=== PATIENT | female | born 1965 | race Caucasian/White ===

== ENCOUNTER → 2021-04-07 11:48 | Outpatient (CLI) | payer OTHER, SELFPAY ==
[2021-04-07 12:32] LABS: Add Manual Diff / Slide Review NO; Basophils Absolute Auto 0 /uL (0-100); Basophils Percent Auto 0.7 % (0-2); Eosinophils Absolute Auto 100 /uL (0-450); Eosinophils Percent Auto 2.6 % (2-4); Hematocrit 33.4 % (36-46); Hemoglobin 11.3 g/dL (12.0-16.0); Lymphocytes Absolute Auto 1300 /uL (1100-4500); Lymphocytes Percent Auto 22.1 % (25-40); Mean Corpuscular HGB Conc 33.9 % (30-36); Mean Corpuscular Volume 91.4 fL (80-100); Monocytes Absolute Auto 700 /uL (0-900); Monocytes Percent Auto 12.2 % (3-14); Neutrophils Absolute Auto 3500 /uL (1500-7000); Neutrophils Percent Auto 62.4 % (50-75); Platelet Count 215 X10^3/uL (150-400); Red Blood Cell Count 3.65 X10^6/uL (4.0-5.2); White Blood Cell Count 5.7 X10^3/uL (4.5-11.0)
[2021-04-07 14:54] LABS: Alanine Aminotransferase 21 IU/L (<35); Albumin 3.2 g/dL (3.5-5.0); Albumin Globulin Ratio 1.2 (1.0-2.8); Alkaline Phosphatase 81 U/L (38-126); Aspartate Aminotransferase 31 IU/L (14-36); Bilirubin Total 0.4 mg/dL (0.2-1.3); Blood Urea Nitrogen 20 mg/dL (7-17); Calcium 9.8 mg/dL (8.4-10.2); Carbon Dioxide 22 mmol/L (22-32); Chloride 108 mmol/L (98-107); Estimated Glomerular Filt Rate 41.4 mL/min (>60); Globulin 2.7 g/dL (1.7-4.1); Glucose 89 mg/dL (70-100); HEMOLYSIS 21 (0-50); Potassium 4.2 mmol/L (3.4-5.1); Sodium 138 mmol/L (137-145); Total Protein 5.9 g/dL (6.3-8.2)
[2021-04-07 16:58] LABS: Free T4, Direct Thyroxine 5.82 ng/dL (0.78-2.19)
[2021-04-07 17:13] LABS: Thyroid Stimulating Hormone < 0.015 uIU/mL (0.47-4.68)
== END ==
PROVIDERS: PCP Physician Assistant; Referring Provider Specialist; Visit Provider Specialist
DX: R10.9 Unspecified abdominal pain (principal); R53.83 Other fatigue; R10.84 Generalized abdominal pain; R53.82 Chronic fatigue, unspecified
CPT/HCPCS: 36415; 80053; 84439; 84443; 85025; 99214

== ENCOUNTER → 2021-04-19 13:50 | Outpatient (CLI) | payer OTHER, SELFPAY ==
[2021-04-19 14:23] LABS: COVID19 -Nasal RAPID Negative (Negative)
== END ==
PROVIDERS: PCP Physician Assistant; Visit Provider Specialist
DX: Z20.822 Contact with and (suspected) exposure to COVID-19 (principal)
CPT/HCPCS: 87635; C9803

== ENCOUNTER 2021-04-21 13:31 | Day surgery (SDC) | payer OTHER, SELFPAY ==
[2021-04-21] VITALS (8 sets, daily range): BP systolic 116–130; BP diastolic 57–84; PULSE 56–76; RESP 11–24; TEMP 36.4–36.7; O2SAT 93–98; BMI 35.2
[2021-04-21] MEDS: LACTATED RINGERS 1,000 ML 200 ML IV (14:27)
--- NOTE | 2021-04-21 14:46 | PM.PREOP ---
Pre-operative Note COVID-19 COVID-19 status: Negative Result date/Date tested (Pos, Neg/Pending): 04/20/21 Interval Note History & Physical reviewed/Exam performed by Physician: Yes Changes to H&P: Yes H&P completed within 30 days and has changed as indicated here:: Patient has been seen by her virtualization architect and he apparently feels her symptoms are not cardiac related and that her heart is functioning as expected. Will have a magnet in the room. Patient was advised by me not to stop her blood thinners. This may put her at increased risk of bleeding but I felt the risk for other reasons was not worth stopping the medication since the risk is actually pretty low that she would have a series complication. ASA Class (for procedural sedation): III
--- NOTE | 2021-04-21 15:27 | PM.OP.ENDO ---
Operative Date/Time/Diagnoses Date of procedure: 04/21/21 Time of procedure: 15:27 Pre-op diagnosis: Abdominal pain. This is her 1st colonoscopy. She is 55. Post-op diagnosis: same (Rare diverticulosis. Hemorrhoids without ulceration. Otherwise normal exam.) Procedure & Clinicians Study performed: Colonoscopy Same procedure as scheduled: Yes Indications: Evaluate abdominal pain. Screen for colon cancer. Surgeon: Patric Gallo Procedure Notes SCOAP/Timeout: Performed Procedure in detail: The patient was placed in the left lateral decubitus position and underwent IV sedation directed by the surgeon consisting of fentanyl and Versed. Digital exam was unremarkable. The scope was inserted and advanced through the rectum into the sigmoid, descending, transverse, and ascending colon. Patient had to be repositioned and a stiffener inserted and pressure applied. Random occasional diverticuli were noted.. The cecum was reached identified by the ileocecal valve and the appendiceal opening. The scope was gradually brought out. No Polyps were found. The scope ultimately was retroflexed in the rectum. The appearance was remarkable for hemorrhoidal disease. There were no ulcers. The scope was brought slowly through her annual verge and additional hemorrhoidal disease noted.. The scope was removed and the patient tolerated the procedure well. Prep was very good. Scope withdrawal time: 6 minutes Sedation minutes: 29 Findings: diverticulosis (Rare) and internal hemorrhoids Specimen(s): none sent Complications: none Post-procedure Recommendations: Colonscopy in 10 years Follow up: as needed Disposition: PACU
[2021-04-21] MEDS: fentaNYL 250 MCG/5 ML INJ IV (15:28)
[2021-04-21] MEDS: MIDAZOLAM 5 MG/5 ML VIAL IV (15:28)
--- NOTE | 2021-04-21 16:17 | SUR.PHASEII ---
Pt ready to go, nay soft liquids tolerated, ceciliae called pt left in stable condition
== END 2021-04-21 16:18 | disposition home or self-care (01) ==
PROVIDERS: PCP Physician Assistant; Referring Provider Specialist; Visit Provider Specialist
PROC: 0DJD8ZZ Inspection of Lower Intestinal Tract, Via Natural or Artificial Opening Endoscopic (ICD-10-PCS; CPT 45378; principal; 2021-04-21 14:30)
DX: R10.9 Unspecified abdominal pain (principal); K57.30 Diverticulosis of large intestine without perforation or abscess without bleeding; K64.8 Other hemorrhoids; Z95.0 Presence of cardiac pacemaker; Z86.74 Personal history of sudden cardiac arrest
CPT/HCPCS: 45378; 99152; 99153; J2250; J3010

== ENCOUNTER 2021-04-27 11:38 | Emergency (ER) | payer OTHER, SELFPAY ==
[2021-04-27 12:10] VITALS: BP 160/77; PULSE 76; RESP 17; TEMP 36.8; O2SAT 98
[2021-04-27 13:33] LABS: Add Manual Diff / Slide Review NO; Basophils Absolute Auto 0 /uL (0-100); Basophils Percent Auto 0.7 % (0-2); Eosinophils Absolute Auto 200 /uL (0-450); Eosinophils Percent Auto 4.2 % (2-4); Hemoglobin 10.9 g/dL (12.0-16.0); Lymphocytes Absolute Auto 1300 /uL (1100-4500); Lymphocytes Percent Auto 26.2 % (25-40); Monocytes Absolute Auto 600 /uL (0-900); Monocytes Percent Auto 11.6 % (3-14); Neutrophils Absolute Auto 2700 /uL (1500-7000); Neutrophils Percent Auto 57.3 % (50-75); Platelet Count 184 X10^3/uL (150-400); Red Blood Cell Count 3.62 X10^6/uL (4.0-5.2); Red Cell Distribution Width 12.8 % (11.6-14.8); White Blood Cell Count 4.8 X10^3/uL (4.5-11.0)
[2021-04-27 13:41] LABS: Troponin I < 0.012 ng/mL (0.01-0.034)
[2021-04-27 13:55] LABS: Alanine Aminotransferase 23 IU/L (<35); Albumin 3.4 g/dL (3.5-5.0); Albumin Globulin Ratio 1.2 (1.0-2.8); Alkaline Phosphatase 88 U/L (38-126); Aspartate Aminotransferase 40 IU/L (14-36); BUN Creatinine Ratio 10.2 (6-22); Bilirubin Total 0.4 mg/dL (0.2-1.3); Blood Urea Nitrogen 13 mg/dL (7-17); Carbon Dioxide 22 mmol/L (22-32); Chloride 108 mmol/L (98-107); Estimated Glomerular Filt Rate 43.5 mL/min (>60); Globulin 2.9 g/dL (1.7-4.1); Glucose 95 mg/dL (70-100); HEMOLYSIS < 15 (0-50); Potassium 3.8 mmol/L (3.4-5.1); Sodium 137 mmol/L (137-145); Total Protein 6.3 g/dL (6.3-8.2)
[2021-04-27 14:04] LABS: Free T4, Direct Thyroxine 5.92 ng/dL (0.78-2.19)
[2021-04-27 14:19] LABS: Thyroid Stimulating Hormone < 0.015 uIU/mL (0.47-4.68)
[2021-04-27 15:12] VITALS: BP 130/62; PULSE 60; RESP 18; O2SAT 100
[2021-04-27 15:30] LABS: Appearance Urine UA CLEAR; Bilirubin Urine UA NEGATIVE (NEGATIVE); Color Urine UA YELLOW; Glucose Urine UA NEGATIVE (Negative); Ketones Urine UA NEGATIVE (NEGATIVE); Leukocyte Esterase Urine UA NEGATIVE (NEGATIVE); Nitrite Urine UA NEGATIVE (Negative); Occult Blood Urine UA TRACE-INTACT (Negative); Protein Urine UA NEGATIVE (Negative); Specific Gravity Urine UA <=1.005 (1.000-1.035); Urobilinogen Urine UA 0.2 E.U./dL (0.2)
[2021-04-27 15:34] LABS: pH Urine UA 6.5 (4.5-8.0)
--- NOTE | 2021-04-27 15:47 | ED.RECABL ---
HPI - Recheck/Abnormal Lab/Rx General Chief Complaint: Recheck/Abnormal Lab/Rx Stated Complaint: thyroid issues Time Seen by Provider: 04/27/21 15:36 Source: patient Mode of arrival: Ambulatory History of Present Illness HPI narrative: Patient is a 56-year-old female presents with abnormal thyroid studies. She states she was sent here for evaluation. She has had 6 weeks of ongoing symptoms generalized weakness for falling out ongoing abdominal pain. She has had workup for abdominal pain including ultrasound and colonoscopy. She says the person who actually did the colonoscopy found that she had thyroid issues and this was beginning of the month. Primary has been trying to get her into an keycase assembler but she can not be seen by endocrinology for at least 2 more months. She generally feels terrible and feels like no one is helping her. She does have atrial fibrillation she has cut that pacemaker she is on Eliquis and metoprolol. She denies chest pain palpitations. She does feel little dizzy and lightheaded at times. She has not passed out. No nausea or vomiting. Related Data Home Medications Medication Instructions Recorded Confirmed metoprolol succinate 50 mg 75 mg PO BID #0 03/06/13 04/21/21 tablet,extended release 24 hr (Toprol XL) Acetaminophen/Aspirin/Caffei 1 tab PO BS PRN #0 03/07/13 04/07/21 (EXCEDRIN EXTRA STRENGTH 250 MG-250 MG-65 MG~) diltiazem HCl 60 mg tablet 60 mg PO QDAY #0 05/04/17 04/21/21 (Cardizem) topiramate 100 mg tablet (Topamax) 100 mg PO QDAY #0 05/04/17 04/21/21 apixaban 5 mg tablet 5 mg PO BID 04/07/21 04/21/21 aspirin 81 mg tablet,delayed 81 mg PO DAILY 04/07/21 04/21/21 release (Adult Aspirin Regimen) buspirone 15 mg tablet 15 mg PO BID 04/07/21 04/21/21 fluoxetine 20 mg capsule (Prozac) 20 mg PO DAILY 04/07/21 04/21/21 loratadine 10 mg tablet (Claritin) 10 mg PO DAILY 04/07/21 04/21/21 oxycodone 5 mg capsule 5 mg PO BID PRN 06/10/21 06/10/21 Previous Rx's Medication Instructions Recorded methimazole 5 mg tablet 5 mg PO DAILY #30 tab 04/27/21 Allergies Allergy/AdvReac Type Severity Reaction Status Date / Time promethazine AdvReac Severe Irritable Verified 04/27/21 12:09 Penicillins [PENICILLINS] AdvReac Intermediate ITCHING Verified 04/27/21 12:09 morphine [MORPHINE] AdvReac Mild dry mouth Verified 04/27/21 12:09 Review of Systems Review of Systems ROS Unobtainable: All systems reviewed & are unremarkable except as noted in HPI and below Constitutional Constitutional: Reports fatigue, Denies headache(s), Reports malaise and Reports weight loss Eyes Eyes: Denies blurry vision and Denies exophthalmos ENT Ears, Nose, Mouth, and Throat: Denies headache(s) Cardiovascular Cardiovascular: Reports irregular heart rhythm Respiratory Respiratory: Denies chest congestion and Denies wheezing Gastrointestinal Gastrointestinal: Reports as per HPI and Reports abdominal pain Genitourinary Genitourinary: Denies urinary hesitancy and Denies urinary urgency Neurologic Neurologic: Denies headache(s) Endocrine Endocrine: Reports fatigue Allergic/Immunologic Allergic/Immunologic: Denies wheezing Patient History Medical History (Updated 04/27/21 @ 15:55 by Sarah Yuan DO) Hx of cardiac pacemaker Surgical History (Updated 04/07/21 @ 11:51 by Sandi Ramirez RN) Hx of hysterectomy Hx of kidney removal Social History (Updated 04/07/21 @ 11:52 by Sandi Ramirez RN) marital status: household members: spouse Smoking Status: Never smoker alcohol intake: current substance use type: does not use Smoking Status: Never smoker alcohol intake frequency: holidays/special occasions only Substance Use Type: does not use, opiates and prescription drug Exam Initial Vital Signs Initial Vital Signs: Vital Signs Temperature 98.2 F 04/27/21 12:10 Pulse Rate 76 04/27/21 12:10 Respiratory Rate 17 04/27/21 12:10 Blood Pressure 160/77 H 04/27/21 12:10 Pulse Oximetry 98 04/27/21 12:10 GENERAL: Alert pleasant 56-year-old female and in no acute distress. HEENT: Head atraumatic,EOMI, pupils reactive, face symmetric, moist mucous membranes CARDIOVASCULAR: Regular rate and rhythm without murmurs, rubs or gallops. RESPIRATORY: Breath sounds equal bilaterally, no wheezes rales or rhonchi. ABDOMEN: Soft, mild epigastric pain no guarding or rebound negative right upper quadrant pain EXTREMITIES: Normal range of motion, no clubbing or edema. Neurovascularly intact NEUROLOGICAL: Alert and oriented x4.Normal gait and speech. SKIN: Warm, dry, no laceration, no petechiae, no rashes or lesions. Course Orders Ordered: ED Orders 04/27/21 12:41 EKG-12 Lead Stat 04/27/21 13:07 CMP [Comprehensive Metabolic Panel] Stat Complete Blood Count AUTO DIFF Stat Free T3, Triiodothyronine Free Stat Free T4, Direct Thyroxine Stat Thyroid Stimulating Hormone Stat Troponin I Stat 04/27/21 15:19 Urinalysis Screen (Dip Only) Stat Vital Signs Vital signs: Vital Signs - 8 hr 04/27/21 12:10 04/27/21 15:12 Temperature 98.2 F Pulse Rate 76 60 Respiratory Rate 17 18 Blood Pressure 160/77 H 130/62 Pulse Oximetry 98 100 MDM - Recheck/Abnormal Lab/Rx Lab Data Attestation: I reviewed the patient's lab results. Result diagrams: 04/27/21 13:07 04/27/21 13:07 Labs: Lab Results 04/27/21 04/27/21 04/27/21 Range/Units 13:07 13:07 13:07 WBC 4.8 (4.5-11.0) X10^3/uL RBC 3.62 L (4.0-5.2) X10^6/uL Hgb 10.9 L (12.0-16.0) g/dL Hct 33.0 L (36-46) % MCV 91.0 (80-100) fL MCH 30.0 (26-34) PG MCHC 33.0 (30-36) % RDW 12.8 (11.6-14.8) % Plt Count 184 (150-400) X10^3/uL Neut % (Auto) 57.3 (50-75) % Lymph % (Auto) 26.2 (25-40) % O'Brien % (Auto) 11.6 (3-14) % Eos % (Auto) 4.2 H (2-4) % Baso % (Auto) 0.7 (0-2) % Neut # (Auto) 2700 (6815-7443) /uL Lymph # (Auto) 1300 (5076-2476) /uL O'Brien # (Auto) 600 (0-900) /uL Eos # (Auto) 200 (0-450) /uL Baso # (Auto) 0 (0-100) /uL Sodium (137-145) mmol/L Potassium (3.4-5.1) mmol/L Chloride (98-107) mmol/L Carbon Dioxide (22-32) mmol/L BUN (7-17) mg/dL Creatinine (0.52-1.04) mg/dL Estimated GFR (>60) mL/min BUN/Creatinine Ratio (6-22) Glucose (70-100) mg/dL Calcium (8.4-10.2) mg/dL Total Bilirubin (0.2-1.3) mg/dL AST (14-36) IU/L ALT (<35) IU/L Alkaline Phosphatase (38-126) U/L Troponin I < 0.012 (0.01-0.034) ng/mL Total Protein (6.3-8.2) g/dL Albumin (3.5-5.0) g/dL Globulin (1.7-4.1) g/dL Albumin/Globulin Ratio (1.0-2.8) TSH < 0.015 L (0.47-4.68) uIU/mL Free T4 5.92 H (0.78-2.19) ng/dL Free T3 14.20 H (2.77-5.27) pg/mL Urine Color Urine Appearance Urine pH (4.5-8.0) Ur Specific [place] (1.000-1.035) Urine Protein (Negative) Urine Glucose (UA) (Negative) g/dL Urine Ketones (NEGATIVE) Urine Occult Blood (Negative) Urine Nitrate (Negative) Urine Bilirubin (NEGATIVE) Urine Urobilinogen (0.2) E.U./dL Ur Leukocyte Esterase (NEGATIVE) 04/27/21 04/27/21 Range/Units 13:07 15:19 WBC (4.5-11.0) X10^3/uL RBC (4.0-5.2) X10^6/uL Hgb (12.0-16.0) g/dL Hct (36-46) % MCV (80-100) fL MCH (26-34) PG MCHC (30-36) % RDW (11.6-14.8) % Plt Count (150-400) X10^3/uL Neut % (Auto) (50-75) % Lymph % (Auto) (25-40) % O'Brien % (Auto) (3-14) % Eos % (Auto) (2-4) % Baso % (Auto) (0-2) % Neut # (Auto) (8449-5134) /uL Lymph # (Auto) (7027-2538) /uL O'Brien # (Auto) (0-900) /uL Eos # (Auto) (0-450) /uL Baso # (Auto) (0-100) /uL Sodium 137 (137-145) mmol/L Potassium 3.8 (3.4-5.1) mmol/L Chloride 108 H (98-107) mmol/L Carbon Dioxide 22 (22-32) mmol/L BUN 13 (7-17) mg/dL Creatinine 1.27 H (0.52-1.04) mg/dL Estimated GFR 43.5 L (>60) mL/min BUN/Creatinine Ratio 10.2 (6-22) Glucose 95 (70-100) mg/dL Calcium 10.0 (8.4-10.2) mg/dL Total Bilirubin 0.4 (0.2-1.3) mg/dL AST 40 H (14-36) IU/L ALT 23 (<35) IU/L Alkaline Phosphatase 88 (38-126) U/L Troponin I (0.01-0.034) ng/mL Total Protein 6.3 (6.3-8.2) g/dL Albumin 3.4 L (3.5-5.0) g/dL Globulin 2.9 (1.7-4.1) g/dL Albumin/Globulin Ratio 1.2 (1.0-2.8) TSH (0.47-4.68) uIU/mL Free T4 (0.78-2.19) ng/dL Free T3 (2.77-5.27) pg/mL Urine Color Yellow Urine Appearance Clear Urine pH 6.5 (4.5-8.0) Ur Specific [place] <=1.005 (1.000-1.035) Urine Protein Negative (Negative) Urine Glucose (UA) Negative (Negative) g/dL Urine Ketones Negative (NEGATIVE) Urine Occult Blood Trace-intact (Negative) Urine Nitrate Negative (Negative) Urine Bilirubin Negative (NEGATIVE) Urine Urobilinogen 0.2 (0.2) E.U./dL Ur Leukocyte Esterase Negative (NEGATIVE) Urine Dip Bedside Urine Glucose Negative Bedside Urine Bilirubin - Negative Bedside Urine Ketone - Negative Urine Specific [place] 1.010 Bedside Urine Occult Blood +/- Bedside Urine pH 6.0 Bedside Urine Protein - Negative Bedside Urine Urobilinogen - Negative Bedside Urine Nitrite - Negative Bedside Urine Leukocytes - Negative Esterase ECG Data Attestation: I personally reviewed and interpreted this ECG as follows: Interpretation: Normal sinus rhythm rate 61 168 QRS [address] changes or T-wave inversions MDM Narrative Medical decision making narrative: Patient is having ongoing symptoms for last 6 weeks is consistent with hyperthyroid. Left also confirm a hyperthyroid. She currently does not have any evidence of thyroid storm. I will start her on a small dose and I told her it is imperative that she follow up with primary care and she needs to have further studies done. Discharge Plan Departure Patient Disposition: Home Clinical Impression: Hyperthyroidism Instructions: Hyperthyroidism Activity Restrictions/Additional Instructions: *You have been diagnosed with hyperthyroid *What to do: You do need to see an keycase assembler any certainly need further studies. However I will start you on medication for hyperthyroid. It is a very small dose and can be titrated up and will take about 4-6 weeks to notice any effect *Continue to take medications as directed Methimazole 5 mg once a day--> SENT TO [facility] *Follow up with your primary care provider in 2-3 days *Return to ER if you should have palpitations dizziness lightheadedness passing out or any new, worsening or concerning symptoms Prescriptions: New methimazole 5 mg tablet 5 mg PO DAILY Qty: 30 RF: 0 No Action metoprolol succinate [Toprol XL] 50 MG tablet extended release 24 hr 75 mg PO BID Qty: 0 RF: 0 Acetaminophen/Aspirin/Caffei (EXCEDRIN EXTRA STRENGTH 250 MG-250 MG-65 MG~) 1 tab PO BS PRN (Reason: Migraine Headache) Qty: 0 RF: 0 topiramate [Topamax] 100 MG tablet 100 mg PO QDAY Qty: 0 RF: 0 diltiazem HCl [Cardizem] 60 MG tablet 60 mg PO QDAY Qty: 0 RF: 0 apixaban 5 mg tablet 5 mg PO BID RF: 0 aspirin [Adult Aspirin Regimen] 81 mg tablet,delayed release (DR/EC) 81 mg PO DAILY RF: 0 buspirone 15 mg tablet 15 mg PO BID RF: 0 loratadine [Claritin] 10 mg tablet 10 mg PO DAILY RF: 0 oxycodone 5 mg capsule 5 mg PO BID PRN (Reason: Pain, Moderate) RF: 0 fluoxetine [Prozac] 20 mg capsule 20 mg PO DAILY RF: 0 Referrals: Gavin Berkowitz PA-C [Primary Care Provider] -
== END 2021-04-27 16:12 | disposition home or self-care (01) ==
PROVIDERS: Emergency Medicine; Emergency Provider Emergency Medicine; PCP Physician Assistant
DX: E05.90 Thyrotoxicosis, unspecified without thyrotoxic crisis or storm (principal); I48.91 Unspecified atrial fibrillation; Z79.01 Long term (current) use of anticoagulants
CPT/HCPCS: 36415; 80053; 81003; 84439; 84443; 84481; 84484; 85025; 93005; 99283

== ENCOUNTER → 2021-05-10 14:47 | Outpatient (CLI) | payer OTHER, SELFPAY ==
--- NOTE | 2021-05-10 14:49 | DI.ECHO.S_ITS ---
[facility] +---------+ : : [address] : : : : [id number] : : : : Phone: [phone]+ Echocardiogram Report + + :Name: DURGA BARCENAS Study Date: 05/10/2021 Height: 67 in : :[facility] ReadingLocation: Weight: 220 lb : : Gender: Female BSA: 2.1 m2 : :: 1965 Age: 56 yrs BP: 160/110 mmHg: :Reason For Study: VENTRICULAR TACHYCARDIA : :Ordering Physician: KENDRA, : :MALATHI Performed By: Sugar Phillips : :Referring: MALATHI GARDNER : + + Interpretation Summary 1) Normal left ventricular size with moderately reduced systolic function (EF 35-40%). 2) The right ventricle grossly appears normal in size with probable normal systolic function. There is a pacemaker lead in the right ventricle. 3) Severe left atrial enlargement present. 4) Moderate mitral regurgitation. 5) There is moderate tricuspid regurgitation. 6) The right ventricular systolic pressure is estimated to be at least 41 mmHg based on an estimated right atrial pressure of 8 mm Hg. 7) Sinus rhythm with brief runs of atrial tachycardia present. 8) Hypertension present during the study (BP 160/110mmHg). 9) Compared to the Echo done 05/30/2019, LVEF has improved significantly form severely reduced to moderately reduced on this study. Procedure: A two-dimensional transthoracic echocardiogram with color flow and Doppler was performed. The study quality was technically adequate. Comparison is made with the echocardiogram of 05/30/2019, 10/12/2017. The heart rate ranged between 63-145 bpm during the study. Left Ventricle: The estimated left ventricular end diastolic volume is 127 ml. There is mild concentric left ventricular hypertrophy. The left ventricle is normal in size. The ejection fraction is estimated to be 35-40%. Left ventricular systolic function is moderately reduced. Right Ventricle: There is a pacemaker lead in the right ventricle. The right ventricle grossly appears normal in size with probable normal systolic function. Atria: The left atrium is severely dilated. The right atrium is mildly dilated. There is no Doppler evidence for an interatrial shunt. Mitral Valve: The mitral valve is normal in structure and function. There is moderate mitral regurgitation. Aortic Valve: The aortic valve is trileaflet. The aortic valve opens well. There is no aortic valve stenosis. No aortic regurgitation is present. Tricuspid Valve: The tricuspid valve leaflets are thin and pliable. The right ventricular systolic pressure is estimated to be at least 41 mmHg based on an estimated right atrial pressure of 8 mm Hg. There is moderate tricuspid regurgitation. Pulmonic Valve: The pulmonic valve leaflets are thin and pliable; valve motion is normal. There is mild pulmonic regurgitation. Great Vessels: The aortic root is normal size. The dimensions of the ascending aorta are normal. The IVC is of normal diameter and collapses less than 50% with a sniff. This suggests a right atrial pressure of 8 mm Hg. Pericardium/ Pleura There is no pericardial effusion. There is no pleural effusion. MMode/2D Measurements & Calculations LVIDd: 4.8 cm LVOT diam: 1.9 cm LVIDs: 4.3 cm Ao root diam: 3.0 cm FS: 10.5 % asc Aorta Diam: 3.0 cm IVSd: 1.0 cm Ao Arch Diam (Prox Trans): 2.9 cm LVPWd: 1.1 cm LV lubin. diameter/BSA (cm/m^2): 2.3 LV sys. diameter/BSA (cm/m^2): 2.0 LA A2 area: 33.0 cm2 RA long axis: 6.2 cm LA A4 area: 30.5 cm2 RA area: 23.9 cm2 LA length (vol): 6.9 cm RA vol: 78.0 ml LA vol: 123.0 ml RA : 37.0 ml/m2 LA vol index: 58.4 ml/m2 IVC diam: 1.8 cm RVD1 (basal): 4.3 cm TAPSE: 2.7 cm Doppler Measurements & Calculations Ao V2 max: 142.7 cm/sec LVOT Max Noel: 64.6 cm/sec Ao V2 mean: 94.9 cm/sec LV V1 max P.7 mmHg Ao max P.2 mmHg LV V1 VTI: 13.3 cm Ao mean P.1 mmHg ZAYDA(I,D): 1.4 cm2 Ao V2 VTI: 27.8 cm ZAYDA(V,D): 1.3 cm2 sev ratio: 0.48 ZAYDA indexed to BSA (cm^2/m^2): 0.65 Med Peak E' Noel: 6.8 cm/sec TR max noel: 288.2 cm/sec Lat Peak E' Noel: 6.9 cm/sec TR max P.2 mmHg PA V2 max: 89.1 cm/sec PA V2 mean: 57.1 cm/sec PA mean P.5 mmHg PA pr(Accel): 41.7 mmHg SV(LVOT): 37.9 ml Reading Physician:05:42 PM
== END ==
PROVIDERS: PCP Internal Medicine; Referring Provider Internal Medicine Cardiovascular Disease; Visit Provider Internal Medicine Cardiovascular Disease
DX: I08.1 Rheumatic disorders of both mitral and tricuspid valves (principal); I47.2 Ventricular tachycardia; Z95.0 Presence of cardiac pacemaker
CPT/HCPCS: 93306

== ENCOUNTER 2025-04-09 14:10 | Emergency (ER) | payer OTHER, MEDICARE, SELFPAY ==
[2025-04-09] VITALS (36 sets, daily range): BP systolic 105–156; BP diastolic 64–97; PULSE 60–141; RESP 10–36; TEMP 36.9; O2SAT 92–100; BMI 37.5
--- NOTE | 2025-04-09 14:18 | EKG_ITS ---
[facility] [place] [id number] [address] Test Date: 2025-04-09 Pat Name: Kymberly Joseph Department: Room: Gender: Female Systems Specialist: ARELI : 1965 Requested By: Order Number: [id number] Reading MD: Joe Way MD Measurements Intervals Elizabeth Rate: 104 P: LA: QRS: 37 QRSD: 88 T: 39 QT: 360 QTc: 473 Interpretive Statements Atrial fibrillation with rapid ventricular response Low voltage QRS Septal infarct , age undetermined Electronically Signed On 04-13-2025 15:03:[address] MD
--- NOTE | 2025-04-09 14:18 | DI.RAD.S_ITS ---
PROCEDURE: XR CHEST 1V INDICATIONS: Chest Pain TECHNIQUE: One view of the chest was acquired. COMPARISON: None. FINDINGS: Surgical changes and devices: Left chest wall pacemaker leads are in the region of right atrium and right ventricle. Lungs and pleura: Lungs are clear. No pleural effusions or pneumothorax. Mediastinum: Mediastinal contours appear normal. Heart size is enlarged. Bones and chest wall: No suspicious bony lesions. Overlying soft tissues appear unremarkable. IMPRESSION: No acute cardiopulmonary pathology. Dictated by: Braeedn Walls M.D. on 04/09/2025 at 15:29 Approved by: Braeden Walls M.D. on 04/09/2025 at 15:29
[2025-04-09 15:02] LABS: Add Manual Diff / Slide Review NO; Basophils Absolute Auto 100 /uL (0-100); Basophils Percent Auto 0.9 % (0-2); Eosinophils Absolute Auto 200 /uL (0-450); Eosinophils Percent Auto 2.5 % (2-4); Hematocrit 42.1 % (36-46); Hemoglobin 14.1 g/dL (12.0-16.0); Lymphocytes Absolute Auto 1600 /uL (1100-4500); Lymphocytes Percent Auto 24.9 % (25-40); Mean Corpuscular HGB Conc 33.5 % (30-36); Mean Corpuscular Hemoglobin 31.8 PG (26-34); Monocytes Absolute Auto 500 /uL (0-900); Monocytes Percent Auto 7.5 % (3-14); Neutrophils Absolute Auto 4200 /uL (1500-7000); Neutrophils Percent Auto 64.2 % (50-75); Platelet Count 217 X10^3/uL (150-400); Red Blood Cell Count 4.43 X10^6/uL (4.0-5.2); Red Cell Distribution Width 13.5 % (11.6-14.8); White Blood Cell Count 6.6 X10^3/uL (4.5-11.0)
[2025-04-09 15:07] LABS: INR 1.7 (0.9-1.3); Prothrombin Time 18.9 SECONDS (9.4-12.5)
[2025-04-09 15:10] LABS: PTT Partial Thromboplastin Tim 38 SECONDS (25.1-36.5)
[2025-04-09 15:17] LABS: Alanine Aminotransferase 20 IU/L (<35); Albumin 4.2 g/dL (3.5-5.0); Albumin Globulin Ratio 1.4 (1.0-2.8); Alkaline Phosphatase 87 U/L (38-126); Aspartate Aminotransferase 27 IU/L (14-36); BUN Creatinine Ratio 13.1 (6-22); Bilirubin Total 0.7 mg/dL (0.2-1.3); Blood Urea Nitrogen 22 mg/dL (7-17); Calcium 9.6 mg/dL (8.4-10.2); Carbon Dioxide 21 mmol/L (22-32); Chloride 110 mmol/L (98-107); Creatine Kinase 35 U/L (30-135); Estimated Glomerular Filt Rate 35 mL/min (>60); Glucose 94 mg/dL (70-99); HEMOLYSIS 18 (0-50); Lipase 102 U/L (23-300); Potassium 4.5 mmol/L (3.4-5.1); Sodium 141 mmol/L (137-145); Total Protein 7.2 g/dL (6.3-8.2)
[2025-04-09 15:29] LABS: NT-proBNP (BNP-Adult 18+) 2810 pg/mL (<125); Troponin I < 0.012 ng/mL (0.01-0.034)
[2025-04-09 18:07] LABS: Troponin I < 0.012 ng/mL (0.01-0.034)
--- NOTE | 2025-04-09 19:58 | ED.ARRPALP ---
HPI - Arrhythmia/Palpitations General Chief Complaint: Arrhythmia/Palpitations Stated Complaint: sent by walk in SOB, in afib Time Seen by Provider: 04/09/25 18:29 Source: patient Mode of arrival: Ambulatory History of Present Illness HPI narrative: 59-year-old woman with a history of paroxysmal atrial fibrillation, on apixaban, hypertension, seasonal allergies, depression who presents complaining of a week of exertional dyspnea dizziness feeling lightheaded which has been getting progressively worse. Recently had metoprolol increased. She does have a pacemaker. 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 Related Data Home Medications ?Medication ?Instructions ?Recorded ?Confirmed metoprolol succinate 50 mg 75 mg PO BID ##0 03/06/13 04/21/21 tablet,extended release 24 hr (Toprol XL) Acetaminophen/Aspirin/Caffei 1 tab PO BS PRN Migraine Headache 03/07/13 04/07/21 (EXCEDRIN EXTRA STRENGTH 250 ##0 MG-250 MG-65 MG~) diltiazem HCl 60 mg tablet 60 mg PO QDAY ##0 05/04/17 04/21/21 (Cardizem) topiramate 100 mg tablet (Topamax) 100 mg PO QDAY ##0 05/04/17 04/21/21 apixaban 5 mg tablet 5 mg PO BID 04/07/21 04/21/21 aspirin 81 mg tablet,delayed 81 mg PO DAILY 04/07/21 04/21/21 release (Adult Aspirin Regimen) buspirone 15 mg tablet 15 mg PO BID 04/07/21 04/21/21 fluoxetine 20 mg capsule (Prozac) 20 mg PO DAILY 04/07/21 04/21/21 loratadine 10 mg tablet (Claritin) 10 mg PO DAILY 04/07/21 04/21/21 oxycodone 5 mg capsule 5 mg PO BID PRN Pain, Moderate 04/07/21 04/07/21 Previous Rx's ?Medication ?Instructions ?Recorded methimazole 5 mg tablet 5 mg PO DAILY #30 tabs 04/27/21 amiodarone 200 mg tablet 200 mg PO TAPER #90 tabs 04/09/25 Allergies Allergy/AdvReac Type Severity Reaction Status Date / Time promethazine AdvReac Severe Irritable Verified 04/27/21 12:09 Penicillins (PENICILLINS) AdvReac Intermediate ITCHING Verified 04/27/21 12:09 morphine (MORPHINE) AdvReac Mild dry mouth Verified 04/27/21 12:09 Review of Systems Review of Systems Narrative: Pertinent positive and negative findings as per HPI Patient History Medical History Hx of cardiac pacemaker Surgical History Hx of kidney removal Hx of hysterectomy Social History marital status: household members: spouse Smoking Status: Never smoker alcohol intake: current substance use type: does not use Smoking Status: Never smoker alcohol intake frequency: holidays/special occasions only Exam Initial Vital Signs Initial Vital Signs: Vital Signs Temperature 98.4 F 04/09/25 14:13 Pulse Rate 124 H 04/09/25 14:13 Respiratory Rate 18 04/09/25 14:13 Blood Pressure 121/72 04/09/25 14:13 Pulse Oximetry 99 04/09/25 14:13 Oxygen Delivery Method Room Air 04/09/25 14:13 General: Anxious appearing, in no acute distress. Able to give a complete and coherent history. Well-nourished well-developed HEENT: Moist mucous membranes, normal sclera with reactive pupils, Respiratory: Lungs are clear to auscultation, no wheezing no rales no rhonchi. Full and symmetrical air movement Cardiac: Irregular, no murmurs Abdomen: Soft, nontender, no rebound or guarding, no flank pain Skin: Warm and dry, no rashes Neurologic: Grossly neurologically intact with no obvious asymmetries or abnormalities Extremities: No trauma, well perfused Psych: Cooperative, appropriate insight and affect Procedures Cardioversion Time of Cardioversion: 20:40 Consent Signed: Yes Indication: Symptomatic AFib Stability: Stable Number of attempts (shocks): 2 Joules used: 200 Cardiac rhythm post-cardioversion: Atrial paced Sinus rhythm Additional Comments: 150 IV amiodarone given prior to procedure Procedural Sedation Time of procedure: 20:25 Consent signed: Yes Time out performed: Yes Indication: cardioversion ASA Class: III Mallampati Airway Classification: Class III Preparation: youth nutritional monitor applied, pulse oximeter, capnometry used, supplemental O2 applied, suction/airway equipment at bedside and IV secured IV Propofol dose (mg): 80 Intraservice time/total sedation time (min): 12 ED Sedation Level: Moderate (Concious) Patient Tolerated Procedure: Well Additional Comments: Patient was initially given 40 mg of propofol, initial shock was not successful cardioversion. She was given an another 20 mg as she began to wake, was still too awake and a 2nd 20 mg was given prior to the 2nd shock which was successful. Total dose was 80 mg Course Orders Ordered: ED Orders 04/09/25 14:18 XR chest 1V Stat EKG-12 Lead Stat 04/09/25 14:48 Complete Blood Count AUTO DIFF Stat Comprehensive Metabolic Panel Stat Lipase Stat Magnesium Stat NT-proBNP (BNP-Adult 18+) Stat PTT Partial Thromboplastin Josemanuel Stat Prothrombin Time INR Stat Troponin & CK Cardiac Panel Stat 04/09/25 17:35 Trop I [Troponin I] Stat Discontinued Medications Aspirin (Aspirin 81 Mg Chew Tab) 324 mg PO NOW ONE Stop: 04/09/25 14:19 Last Admin: 04/09/25 16:07 Dose: Not Given Documented By: RB Amiodarone HCl/Dextrose (Nexterone) 150 mg in 100 mls @ 600 mls/hr IV NOW ONE Stop: 04/09/25 20:53 Last Infusion: 04/09/25 21:16 Dose: Infused Documented By: Admin: 04/09/25 20:45 Dose: 600 mls/hr Documented By: HENRY Propofol (Propofol 200 Mg/20 Ml Vial) 200 mg IV NOW ONE Stop: 04/09/25 20:26 Last Admin: 04/09/25 21:14 Dose: 80 mg Documented By: HENRY Vital Signs Vital signs: Vital Signs - 8 hr 04/09/25 14:13 04/09/25 14:29 04/09/25 14:30 Temperature 98.4 F Pulse Rate 124 H 113 H Respiratory Rate 18 16 Blood Pressure 121/72 156/71 H Pulse Oximetry 99 99 Oxygen Delivery Method Room Air 04/09/25 14:30 04/09/25 15:00 04/09/25 15:01 Temperature Pulse Rate 126 H 113 H 113 H Respiratory Rate 10 L 12 13 Blood Pressure Pulse Oximetry 99 98 98 Oxygen Delivery Method 04/09/25 15:01 04/09/25 15:30 04/09/25 15:30 Temperature Pulse Rate 105 H Respiratory Rate 21 Blood Pressure 118/79 119/82 Pulse Oximetry 99 Oxygen Delivery Method 04/09/25 15:59 04/09/25 15:59 04/09/25 16:00 Temperature Pulse Rate 135 H 130 H Respiratory Rate 13 Blood Pressure 123/85 Pulse Oximetry 100 100 Oxygen Delivery Method 04/09/25 16:00 04/09/25 16:30 04/09/25 16:30 Temperature Pulse Rate 102 H Respiratory Rate Blood Pressure 134/84 131/84 Pulse Oximetry 97 Oxygen Delivery Method 04/09/25 17:00 04/09/25 17:01 04/09/25 17:01 Temperature Pulse Rate 104 H 105 H Respiratory Rate Blood Pressure 116/86 Pulse Oximetry 99 99 Oxygen Delivery Method 04/09/25 17:30 04/09/25 17:30 04/09/25 18:00 Temperature Pulse Rate 104 H 111 H Respiratory Rate Blood Pressure 130/77 Pulse Oximetry 99 97 Oxygen Delivery Method 04/09/25 18:00 04/09/25 18:30 04/09/25 18:30 Temperature Pulse Rate 110 H Respiratory Rate Blood Pressure 131/97 H 137/81 Pulse Oximetry 97 Oxygen Delivery Method 04/09/25 19:00 04/09/25 19:00 04/09/25 19:30 Temperature Pulse Rate 103 H 105 H Respiratory Rate 21 19 Blood Pressure 127/76 Pulse Oximetry 97 98 Oxygen Delivery Method Room Air 04/09/25 19:30 04/09/25 19:44 04/09/25 19:44 Temperature Pulse Rate 105 H Respiratory Rate 19 Blood Pressure 137/93 H 136/84 Pulse Oximetry 100 Oxygen Delivery Method Room Air 04/09/25 20:00 04/09/25 20:00 04/09/25 20:27 Temperature Pulse Rate 105 H 130 H Respiratory Rate 20 20 Blood Pressure 134/77 Pulse Oximetry 98 98 Oxygen Delivery Method Room Air Room Air 04/09/25 20:27 04/09/25 20:32 04/09/25 20:36 Temperature Pulse Rate 141 H 122 H Respiratory Rate 23 18 Blood Pressure 148/95 H 142/94 H Pulse Oximetry 98 98 Oxygen Delivery Method Room Air 04/09/25 20:36 04/09/25 20:36 04/09/25 20:41 Temperature Pulse Rate 122 H 114 H Respiratory Rate 18 24 Blood Pressure 142/94 H Pulse Oximetry 98 97 Oxygen Delivery Method Room Air Room Air 04/09/25 20:41 04/09/25 20:44 04/09/25 20:44 Temperature Pulse Rate 120 H Respiratory Rate 36 H Blood Pressure 130/87 123/79 Pulse Oximetry 92 Oxygen Delivery Method Room Air 04/09/25 20:48 04/09/25 20:48 04/09/25 20:52 Temperature Pulse Rate 120 H Respiratory Rate 22 Blood Pressure 114/70 116/67 Pulse Oximetry 95 Oxygen Delivery Method Room Air 04/09/25 20:52 04/09/25 20:56 04/09/25 20:56 Temperature Pulse Rate 60 60 Respiratory Rate 20 22 Blood Pressure 114/68 Pulse Oximetry 96 96 Oxygen Delivery Method Room Air Room Air 04/09/25 21:00 04/09/25 21:00 04/09/25 21:04 Temperature Pulse Rate 60 Respiratory Rate 18 Blood Pressure 107/66 105/64 Pulse Oximetry 96 Oxygen Delivery Method Room Air 04/09/25 21:04 04/09/25 21:08 04/09/25 21:08 Temperature Pulse Rate 60 60 Respiratory Rate 19 16 Blood Pressure 108/70 Pulse Oximetry 95 96 Oxygen Delivery Method Room Air Room Air 04/09/25 21:12 04/09/25 21:12 04/09/25 21:16 Temperature Pulse Rate 60 Respiratory Rate 16 Blood Pressure 109/74 106/69 Pulse Oximetry 97 Oxygen Delivery Method 04/09/25 21:16 04/09/25 21:20 04/09/25 21:20 Temperature Pulse Rate 60 60 Respiratory Rate 22 20 Blood Pressure 107/66 Pulse Oximetry 96 96 Oxygen Delivery Method 04/09/25 21:24 04/09/25 21:24 04/09/25 21:28 Temperature Pulse Rate 60 Respiratory Rate 17 Blood Pressure 109/67 111/66 Pulse Oximetry 95 Oxygen Delivery Method Room Air 04/09/25 21:28 04/09/25 21:34 04/09/25 21:35 Temperature Pulse Rate 60 64 Respiratory Rate 23 17 Blood Pressure 140/85 Pulse Oximetry 96 99 Oxygen Delivery Method Room Air Room Air MDM - Arrhythmia/Palpitations Lab Data 04/09/25 14:48 04/09/25 14:48 Labs: Lab Results 04/09/25 04/09/25 Range/Units 14:48 17:35 WBC 6.6 (4.5-11.0) X10^3/uL RBC 4.43 (4.0-5.2) X10^6/uL Hgb 14.1 (12.0-16.0) g/dL Hct 42.1 (36-46) % MCV 95.0 (80-100) fL MCH 31.8 (26-34) PG MCHC 33.5 (30-36) % RDW 13.5 (11.6-14.8) % Plt Count 217 (150-400) X10^3/uL Neut % (Auto) 64.2 (50-75) % Lymph % (Auto) 24.9 L (25-40) % Imperial % (Auto) 7.5 (3-14) % Eos % (Auto) 2.5 (2-4) % Baso % (Auto) 0.9 (0-2) % Neut # (Auto) 4200 (9529-3613) /uL Lymph # (Auto) 1600 (0422-6759) /uL Imperial # (Auto) 500 (0-900) /uL Eos # (Auto) 200 (0-450) /uL Baso # (Auto) 100 (0-100) /uL PT 18.9 H (9.4-12.5) SECONDS INR 1.7 H (0.9-1.3) APTT 38 H (25.1-36.5) SECONDS Sodium 141 (137-145) mmol/L Potassium 4.5 (3.4-5.1) mmol/L Chloride 110 H (98-107) mmol/L Carbon Dioxide 21 L (22-32) mmol/L BUN 22 H (7-17) mg/dL Creatinine 1.68 H (0.52-1.04) mg/dL Estimated GFR 35 L (>60) mL/min BUN/Creatinine Ratio 13.1 (6-22) Glucose 94 (70-99) mg/dL Calcium 9.6 (8.4-10.2) mg/dL Magnesium 2.0 (1.6-2.3) mg/dL Total Bilirubin 0.7 (0.2-1.3) mg/dL AST 27 (14-36) IU/L ALT 20 (<35) IU/L Alkaline Phosphatase 87 (38-126) U/L Total Creatine Kinase 35 (30-135) U/L Troponin I < 0.012 < 0.012 (0.01-0.034) ng/mL NT-Pro-B Natriuret Pep 2810 H (<125) pg/mL Total Protein 7.2 (6.3-8.2) g/dL Albumin 4.2 (3.5-5.0) g/dL Globulin 3.0 (1.7-4.1) g/dL Albumin/Globulin Ratio 1.4 (1.0-2.8) Lipase 102 (23-300) U/L Point of Care Testing Test Results Not applicable MDM Narrative Medical decision making narrative: CC: Symptomatic paroxysmal atrial fibrillation, exertional dyspnea Complicating co-morbidities: Paroxysmal atrial fibrillation, reduced LV function with severe dilated cardiomyopathy, post VFib arrest has ICD implanted since . Solitary kidney Data collected from: patient Social determinants of health that may influence the patients condition: Cardiac arrest in [address] Medical records reviewed: Cardiology note from 03/13/2025 is reviewed, discussed her increasing episodes of atrial fibrillation, increasing symptoms, metoprolol was changed to 50 mg twice a day anticoagulation was continued and she was instructed to follow up in 3 months Phone call on April 03 indicates patient called requesting cardiac ablation moved up from currently scheduled 826 because of her symptomatic dyspnea she is attributing to her AFib Thyroid studies done November 20, 2024 show TSH at 5.88 with free T4 appropriate at 0.89 Differential considered: Acute coronary syndrome, congestive heart failure, symptomatic atrial fibrillation Exam documented above, pertinent findings include: Alert, minor bibasilar crackles remainder of exam is benign Lab Test results independently reviewed as above. Pertinent findings: CBC shows no abnormalities Chemistries show a creatinine at 1.68, remainder of chemistries are appropriate Troponin is undetectable x2 BNP is slightly elevated at 2810 There are no available labs for comparison of renal function nor BNP Independently reviewed EKG: EKG shows atrial fibrillation at a rate of 104. No obvious ischemia Imaging studies independently reviewed: Chest x-ray is unremarkable Consultations: Dr Thompson Treatments: IV amiodarone load, electrical cardioversion with propofol Re-evaluations: Findings reviewed with patient including recommendation for amiodarone. She is concerned that it will effect her solitary kidney and has been on for does not like the fact that she can not be in the sun and it ?made her feel weird. In looking at indications and dosing, with the amiodarone there are no renal dose adjustments required, with contraindications and cautions there is a mention of electrolyte abnormalities uncorrected hepatic impairment but no renal discussion. Under adverse reactions again, renal failure or renal toxicity is not listed. We will use IV amiodarone this evening as recommended to increase the efficacy of the electrical cardioversion and hopefully maintain her sinus rhythm for longer. She is given a written prescription for oral amiodarone load and I have asked that she discuss this further with Dr. Thompson Discussion: Discharge Plan Departure Patient Disposition: Home Clinical Impression: Atrial fibrillation Qualifiers: Atrial fibrillation type: paroxysmal Qualified Code(s): I48.0 - Paroxysmal atrial fibrillation Dyspnea Qualifiers: Dyspnea type: dyspnea on exertion Qualified Code(s): R06.09 - Other forms of dyspnea Instructions: DI for Atrial Fibrillation Activity Restrictions/Additional Instructions: Thank you for coming in today, I am sorry that your recurrent atrial fibrillation is so frustrating I did talk about your case with Dr. Thompson. There was no evidence of heart attack, you are developing a bit of fluid overload that likely will go away with your heart back in its regular rhythm. I would expect to have quite a bit of extra urine over the next couple of days We sedated you with propofol and I did need to shock you 2 times to get your heart back into sinus rhythm. You were given 150 mg of IV amiodarone to help your heart stay in sinus rhythm Dr. Thompson has suggested that you continue oral amiodarone, the dose is 400 mg twice a day for 1 week, 200 mg twice a day for 1 week and continuing at 200 mg once a day until you have talked with him. 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 Prescriptions: New amiodarone 200 mg tablet 200 mg PO TAPER Qty: 90 0RF Rx Instructions: 400mg BId x 7 days, 200 BID 7 days, continue 200mg daily No Action metoprolol succinate [Toprol XL] 50 MG tablet extended release 24 hr 75 mg PO BID Qty: 0 Acetaminophen/Aspirin/Caffei (EXCEDRIN EXTRA STRENGTH 250 MG-250 MG-65 MG~) 1 tab PO BS PRN (Reason: Migraine Headache) Qty: 0 topiramate [Topamax] 100 MG tablet 100 mg PO QDAY Qty: 0 diltiazem HCl [Cardizem] 60 MG tablet 60 mg PO QDAY Qty: 0 apixaban 5 mg tablet 5 mg PO BID aspirin [Adult Aspirin Regimen] 81 mg tablet,delayed release (DR/EC) 81 mg PO DAILY buspirone 15 mg tablet 15 mg PO BID loratadine [Claritin] 10 mg tablet 10 mg PO DAILY oxycodone 5 mg capsule 5 mg PO BID PRN (Reason: Pain, Moderate) fluoxetine [Prozac] 20 mg capsule 20 mg PO DAILY methimazole 5 mg tablet 5 mg PO DAILY Qty: 30 0RF Referrals: Digna Santos MD [Primary Care Provider, Internal Medicine] Stand Alone Forms: Patient Portal/API
[2025-04-09] MEDS: AMIODARONE 150 MG/100 ML PIGGYBACK 600 MG IV (20:45)
--- NOTE | 2025-04-09 20:55 | RT ---
Assisted with concious sedation for cardioversion. Patient maintained on RA throughout procedure with SPO2 of 93-97%. ETCO2 30, with patient requiring short time of jaw thrust to maintain airway after 2nd round of sedation and shock. Patient awake and conversing at conclusion of procedure.
[2025-04-09] MEDS: propofoL 200 MG/20 ML VIAL IV (21:14)
--- NOTE | 2025-04-09 21:32 | PC.NURSE ---
Pt ambulatory around department without difficulty or assistance
[2025-04-09] MEDS: ACETAMINOPHEN 325 MG TABLET 975 MG PO (22:06)
--- NOTE | 2025-04-10 06:39 | EKG_ITS ---
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
== END 2025-04-09 22:27 | disposition home or self-care (01) ==
PROVIDERS: Emergency Medicine; Emergency Provider Emergency Medicine; PCP Internal Medicine
DX: I48.0 Paroxysmal atrial fibrillation (principal); R06.09 Other forms of dyspnea; Z95.0 Presence of cardiac pacemaker; Z79.01 Long term (current) use of anticoagulants
CPT/HCPCS: 36415; 71045; 80053; 82550; 83690; 83735; 83880; 84484; 85025; 85610; 85730; 92960; 93005; 96365; 99285; J0282; J2704